=== PATIENT | female | born 1970 | race Caucasian/White ===

== ENCOUNTER 2024-03-26 08:28 | Outpatient (CLI) | payer BC, SELFPAY ==
--- NOTE | 2024-03-26 08:35 | MM_ITS ---
WS: [id number] SCREENING DIGITAL BREAST TOMOSYNTHESIS MAMMOGRAM WITH CAD HISTORY: SCREENING COMPARISON: 09/28/2013, 12/31/2015 and 03/09/2018 Bilateral CC and MLO with tomosynthesis and synthetic mammography submitted. Computer aided detection analyzed. Breast composition: There are scattered areas of fibroglandular density. 9 mm asymmetry with increase d density seen in the superior LEFT breast. Not definitely seen on the lateral projection. There are additional calcifications scattered throughout each breast. MM/[place] [id number] IMPRESSION: BI-RADS: 0-Incomplete: Need additional imaging evaluation FOLLOW UP: Need Additional Imaging LEFT breast: Spot compression views (exaggerated lateral CC and MLO). True ML. Ultrasound to follow if abnormality persists.
== END 2024-03-26 08:29 | disposition home or self-care (01) ==
LOC: RAD 08:29
PROVIDERS: Family Provider Nurse Practitioner; Visit Provider Family Medicine
DX: Z12.31 Encounter for screening mammogram for malignant neoplasm of breast (principal); R92.323 Mammographic fibroglandular density, bilateral breasts; N64.89 Other specified disorders of breast; R92.1 Mammographic calcification found on diagnostic imaging of breast
CPT/HCPCS: 77063; 77067

== ENCOUNTER → 2024-05-01 11:16 | Outpatient (CLI) | payer BC, SELFPAY ==
--- NOTE | 2024-05-01 11:26 | MM_ITS ---
WS: [id number] ADDITIONAL VIEWS LEFT MAMMOGRAM with tomosynthesis. LEFT BREAST ULTRASOUND HISTORY: LEFT ABNORMAL MAMMOGRAM COMPARISON: 03/09/2018, 03/26/2024 LEFT MAMMOGRAM: Spot compression views and true ML with tomosynthesis and sympathetic mammography. The asymmetry becomes less conspicuous on additional views but is still present. There are also benig n calcifications noted in the upper outer quadrant of the LEFT breast. Ultrasound to follow. LEFT BREAST ULTRASOUND 2-D and color Doppler imaging submitted. No soft tissue mass or shadowing There is a small cyst at 1:00 measuring 0.6 x 0.5 x 0.2 cm. No area of distortion or shadowing. MM/[place] [id number] IMPRESSION: BI-RADS: 2-Benign FOLLOW UP: 1 Year Follow-up No persistent mass or area of shadowing identified in the LEFT breast. Favor th e changes in the LEFT breast are all related to prior surgery.
== END | disposition home or self-care (01) ==
LOC: RAD 11:23
PROVIDERS: Family Provider Nurse Practitioner; PCP Family Medicine; Visit Provider Family Medicine
DX: R92.8 Other abnormal and inconclusive findings on diagnostic imaging of breast (principal); N64.89 Other specified disorders of breast; R92.1 Mammographic calcification found on diagnostic imaging of breast; N60.02 Solitary cyst of left breast
CPT/HCPCS: 76642; 77061; G0279

== ENCOUNTER 2024-08-16 14:38 | Outpatient (CLI) | payer BC, SELFPAY ==
--- NOTE | 2024-08-16 14:46 | XR_ITS ---
WS: [id number] Exam: XR ankle RT min 3V* [id number] Date/Time of Exam: 08/16/2024 3:03 PM Reason For Exam: RIGHT ANKLE JOINT PAIN No fracture or dislocation. The ankle mortise is well-maintained. No obvious joint effusion. Unremark able soft tissues. Slight degenerative change of the ankle mortise. XR/XR ankle RT min 3V* [id number] IMPRESSION: 1. Slight degenerative change. No other significant finding.
== END 2024-08-16 14:39 | disposition home or self-care (01) ==
PROVIDERS: PCP Family Medicine; Visit Provider Family Medicine
DX: M25.571 Pain in right ankle and joints of right foot (principal)
CPT/HCPCS: 73610

== ENCOUNTER → 2024-10-18 10:00 | Outpatient (BNVA) | payer BC, SELFPAY | PROVIDERS: PCP Family Medicine; Visit Provider Family Medicine | DX: E11.9 Type 2 diabetes mellitus without complications (principal); Z98.84 Bariatric surgery status; R63.5 Abnormal weight gain; Z79.890 Hormone replacement therapy; Z78.0 Asymptomatic menopausal state; I10 Essential (primary) hypertension | CPT/HCPCS: 80053; 80061; 82043; 82306; 82607; 83036; 84439; 84443; 84481 ==

== ENCOUNTER → 2025-04-29 11:53 | Outpatient (BNVA) | payer BC, SELFPAY | PROVIDERS: PCP Family Medicine; Visit Provider Family Medicine | DX: Z00.00 Encounter for general adult medical examination without abnormal findings (principal); E11.9 Type 2 diabetes mellitus without complications; K21.9 Gastro-esophageal reflux disease without esophagitis; Z98.84 Bariatric surgery status | CPT/HCPCS: 80053; 80061; 83036; 83540; 84443; 85025 ==

== ENCOUNTER 2025-05-10 09:34 | Outpatient (CLI) | payer BC, SELFPAY ==
--- NOTE | 2025-05-10 09:40 | MM_ITS ---
WS: [id number] BILATERAL SCREENING DIGITAL TOMOSYNTHESIS MAMMOGRAM WITH CAD HISTORY: screening COMPARISON: 05/01/2024, 03/26/2024, 03/09/2018 Bilateral CC and MLO views with tomosynthesis and synthetic mammography submitted. Computer aided detection analyzed. Breast composition: There are scattered areas of fibroglandular density. No suspicious masses, microcalcifications or architectural distortion. Reidentified is the focal asymmetry measuring 8 mm seen only on the LEFT MLO projection in the posterior breast. There are additional areas of fat necrosis versus oil cysts. Probably related to the prior mammoplasty. No interval change since 03/26/2024. Benign calcifications. MM/MM scr BI tomosynthesis [id number] IMPRESSION: BI-RADS: 2 - Benign. FOLLOW UP: 1 Year Follow-up
== END 2025-05-10 09:35 | disposition home or self-care (01) ==
PROVIDERS: PCP Family Medicine; Visit Provider Family Medicine
DX: Z12.31 Encounter for screening mammogram for malignant neoplasm of breast (principal); R92.333 Mammographic heterogeneous density, bilateral breasts; R92.0 Mammographic microcalcification found on diagnostic imaging of breast; N64.1 Fat necrosis of breast; R92.8 Other abnormal and inconclusive findings on diagnostic imaging of breast
CPT/HCPCS: 77063; 77067

== ENCOUNTER → 2025-08-08 10:01 | Outpatient (BNVA) | payer BC, SELFPAY | PROVIDERS: PCP Family Medicine; Visit Provider Registered Nurse Neonatal Intensive Care | DX: R30.0 Dysuria (principal); R39.9 Unspecified symptoms and signs involving the genitourinary system | CPT/HCPCS: 81000; 87086 ==

== ENCOUNTER → 2025-10-31 10:24 | Outpatient (BNVA) | payer BC, SELFPAY | PROVIDERS: PCP Family Medicine; Visit Provider Family Medicine | DX: E11.9 Type 2 diabetes mellitus without complications (principal) | CPT/HCPCS: 82043; 83036 ==